=== PATIENT | male | born 1935 | race Caucasian/White ===

== ENCOUNTER 2016-05-07 10:57 | Day surgery (SDC) | payer MEDICARE ==
[2016-05-07] VITALS (7 sets, daily range): BP systolic 135–195; BP diastolic 57–70; PULSE 51–57; RESP 11–16; O2SAT 93–97
[~2016-05-07] VITALS: Ht 165.1 cm; Wt 99.4 kg
[~2016-05-07 10:57] MED LIST: ASCO-294 PO; ASPI-973 PO; CALC625T83 PO; CeFAZolin 2 Gm/50 mL D5W IV Premix IV ONE; FUR20 PO; IBUP200C11 PO; KEN1C EXT; LOSA25TA21 PO; MELA1TAB11 PO; METO50TA3 PO; MULT-1018 PO; NIAC500T21 PO; OMEG-38 PO; SIMV40TA5 PO; VITA400C19 PO; ZYL100 PO
[2016-05-07] MEDS ORDERED: Ondansetron 2 mg/mL 2 mL Inj ONE (10:58)
[2016-05-07] MEDS ORDERED: fentaNYL-PF 50 mCg/mL 2 mL Inj ONE (10:58)
[2016-05-07] MEDS ORDERED: EPHEDrine/NS 5 mg/mL 5 mL Syringe ONE (10:58)
[2016-05-07] MEDS ORDERED: Propofol 10,000 mCg/mL 20 mL Inj ONE (10:58)
[2016-05-07] MEDS ORDERED: CeFAZolin 2 Gm/50 mL D5W Duplex Bag IV ONE (11:15)
[2016-05-07] MEDS: Lactated Ringer's 1,000 ML IV SCH ×2 (11:47→12:51)
[2016-05-07] MEDS ORDERED: Lactated Ringer's 500 ML IV PRN (12:49)
[2016-05-07] MEDS ORDERED: Lactated Ringer's 1,000 ML IV SCH (12:49)
--- NOTE | 2016-05-07 12:49 | PCM.HPANE ---
Patient Data Surgeon Admitting Provider: Attending Provider:Dalton Bone MD Primary Care Physician:Juan J Weems MD Other Provider:Dorothy [place] Anesthesia Reason for Visit Left Knee Degenerative Medial Meniscus Tear Ht/WT & BMI Height (Feet): 5 Height (Inches): 5 Weight (Kilograms): 100.61 Body Mass Index 36.00 Allergies Coded Allergies: No Known Allergies (Verified Allergy, Unknown, 10/10/15) Past Anesthesia History Anesthesia History: Positive for:: Abnormal Airway (pt states difficult to intubate), Denies:: Anesthesia Reactions, Difficult Intubation, Fam Anesthesia Reaction , Fam Malignant Hypertherm, Malignant Hyperthermia Diabetes History Hx Diabetes?: No 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) Medications Blood Thinner: Aspirin Hypertension Medication: Yes Home Meds Incl Beta Cristobal: Yes Reported Medications Vitamin E (Dl,Tocopheryl Acet) (Vitamin E)400 Unit [id number] Unit PO DAILY 05/01/16 Ascorbate Calcium (Vitamin C)500 Mg Kxwyff496 Mg PO BID 05/01/16 Triamcinolone Acet (Triamcinolone Acetonide Cream)1 Applic/0.25 Gm Cr1 Applic EXT BID #60 GM Ref 0 05/01/16 Simvastatin 40 Mg Bdorco14 Mg PO HS 30 Days Ref 0 05/01/16 Niacinamide (Niacin)500 Mg Fnxlpw113 Mg PO DAILY 05/01/16 Metoprolol Tartrate 50 Mg Wbghzi84 Mg PO BID 30 Days Ref 0 05/01/16 Melatonin/Pyridoxine (Melatonin 3 mg Tablet)1 Each Tablet1 Each PO HS PRN For Insomnia 05/01/16 Losartan Potassium 25 Mg Bcigxh00 Mg PO DAILY 05/01/16 Furosemide 20 Mg Tab20 Mg PO DAILY 30 Days Ref 0 05/01/16 [place]-3/Dha/Epa/Fish Oil (Fish Oil 1,000 mg Softgel)1 Each Capsule1 Each PO DAILY 05/01/16 Calcium Polycarbophil (Fiber-Caps)625 Mg Kspkir802 Mg PO PRN For Constipation 05/01/16 Multivitamin (Multi Vitamin Daily)1 Each Tablet1 Each PO DAILY 30 Days Ref 0 05/01/16 Aspirin 81 Mg Tiixvm99 Mg PO DAILY Ref 0 05/01/16 Allopurinol 100 Mg Gjnqte440 Mg PO DAILY Ref 0 05/01/16 Ibuprofen (Advil)200 Mg Keneevo379 Mg PO Q6H PRN For Pain 05/01/16 Discontinued Reported Medications Losartan Potassium 25 Mg Nwrwne94 Mg PO 05/15/15 Vitamin E Mixed (Vitamin E)400 Unit Jolfabv495 Unit PO BID 30 Days 12/18/14 Ascorbate Calcium (Vitamin C)500 Mg Hnmcwl423 Mg PO BID 12/18/14 Triamcinolone Acet (Triamcinolone Acetonide Cream)1 Applic/0.25 Gm Cr1 Applic EXT BID #60 GM Ref 0 12/18/14 Niacin 500 Mg Voeewv476 Mg PO DAILY 30 Days 12/18/14 Melatonin 3 Mg Tablet3 Mg PO HS PRN Insomnia 12/18/14 Multivits-Min/FA/Lycopene/Lut (Centrum Silver Tablet)1 Each Tablet1 Each PO DAILY 12/18/14 Aspirin 81 Mg Anybzl63 Mg PO HS Ref 0 12/18/14 [place]-3 Fatty Acids (Fish Oil Concentrate)1,000 Mg Capsule1,000 Mg PO DAILY 12/18/14 Furosemide 20 Mg Tab20 Mg PO DAILY 30 Days Ref 0 02/22/14 Simvastatin 40 Mg Iifeoo27 Mg PO HS 30 Days Ref 0 02/22/14 Metoprolol Tartrate 50 Mg Erxkmb54 Mg PO BID 30 Days Ref 0 02/22/14 Allopurinol 100 Mg Ckhown743 Mg PO DAILY 30 Days Ref 0 02/22/14 Discontinued Scripts oxyCODONE-Acetaminophen 5-325 mg 1 Each Tablet1-3 Tab PO Q4H PRN For Pain #30 TABLET Prov:Michelet Cabrera MD 10/10/15 History HEENT History: Positive for:: Abnormal Airway (pt states difficult to intubate ) Cataracts (permanent cataract left eye, no surgery) Denies:: Difficult Intubation Dysphagia Glaucoma Hearing Problem Sinus Problem TMJ Hx of Heart Problems?: Yes Cardiovascular History: Positive for:: Cardiac Surgery (1994 Cabgx4 ) Hypertension Denies:: AICD Atrial Fibrillation Chest Pain Heart Murmur Irregular Heartbeat Pacemaker Peripheral Vascular Rheumatic Fever Valvular Heart Disease (echo 2015- ef 70-75%) Hx of Respiratory Problem?: No Respiratory History: Denies:: Asthma COPD Cough Hemoptysis Oxygen Administration Pneumonia Tuberculosis Use of C-PAP Machine (sleep study negative, no CPAP recommended) Use of Inhalers / NEBS Hx Neurologic Problems?: No Neurological History: Denies:: CVA Dementia Multiple Sclerosis Parkinson's Disease Seizures TIA Hx of GI Problems?: No Gastrointestinal History: Denies:: Cirrhosis Diverticulitis Gastroesphageal Reflux Gastrointestinal Bleeding Heartburn Hepatitis Hiatal Hernia Liver Disease Rectal Bleeding Hx of Problems?: No Genitourinary History: Denies:: Kidney Stones Urinary Tract Infection Male Hx: Denies:: Prostate Problems Scrotal Mass Testicular Surgery Skin History: Denies:: History Skin Disorders? Pressure Ulcers Hx Musculoskeletal Problems?: Yes Musculoskeletal History: Positive for:: Back Injury (hx of lami 25 years ago) Musculoskeletal Trauma (left knee current admission problem) Osteoarthritis Denies:: Joint Replacement Myasthenia Gravis Hx of Psycho/Social Problems?: No Psycho Social History: Denies:: Anxiety Hx Depression Hx Surgeries?: Yes (4 vessel CABG, lami) Hx Any Other Health Problems?: Yes Other History: Positive for:: Hospitalization Denies:: Cancer Thyroid Disease History Blood Transfusions: Positive for:: Accept Blood Products? Denies:: Blood Transfuse Reaction Blood Transfusions Hx Diabetes: No Hx Alcohol Use: NoHx Substance Use: No Smoking Status: Former Smoker Have You Smoked inLast 12 mo: No Stop/Bang P-Blood Pressure: treated: Yes B- Body Mass Index > 35 kg/m2: Yes A- Age over 50: Yes N- Neck Large Circumference: No G- Gender Male: Yes Risk Assessment Category Category 1A: Patient has history of documented sleep apnea, and HAS NOT received any narcotic, sedative or anesthesia administration during this stay. Category 1B: Patient has history of documented sleep apnea, and HAS received any narcotic , sedative or anesthesia administration during this stay Category 2: Patient has SUSPECTED Obstructive Sleep Apnea, and HAS received any narcotic , sedative or anesthesia administration during this stay. Category 3: Patient has SUSPECTED Obstructive Sleep Apnea and HAS NOT received narcotic, sedative or anesthesia administration during this stay. Category 4: Outpatient in Procedural Areas with known sleep apnea or who screen positive for High Risk via the STOP/BANG questionnaire. Exam Exam General Appearance: Alert, Oriented X3, Cooperative, No Acute Distress HEENT/AIRWAY: MP 3, Neck Movement (limited), Mouth Opening (smallish) Lungs: Clear to Auscultation Heart: Exam Unremarkable Plan Impression Patient chart reviewed, patient interviewed and anesthestic plan with risks, benefits, and alternatives discussed, and informed consent obtained. ASA Physical Status: ASA3 Severe Disease (CAD) Anesthetic Plan: GA Bene/Risks/Altern/Consents: Yes HP Complete Prior to Induction: Yes Tono Paredes MD May 06, 2016 15:39
[2016-05-07] MEDS ORDERED: Dexamethasone 4 mg/mL Inj IVPUSH PRN (12:50)
[2016-05-07] MEDS ORDERED: Ondansetron 2 mg/mL 2 mL Inj IVPUSH PRN (12:50)
[2016-05-07] MEDS ORDERED: EPHEDrine Sulfate 50 mg/mL Inj IVPUSH PRN (12:50)
[2016-05-07] MEDS ORDERED: Phenylephrine 10,000 mCg/mL Inj IVPUSH PRN (12:50)
[2016-05-07] MEDS ORDERED: HYDROmorphone 1 mg/mL Inj IVPUSH PRN (12:50)
[2016-05-07] MEDS ORDERED: MetoCLOpramide 5 mg/mL 2 mL Inj IVPUSH PRN (12:50)
[2016-05-07] MEDS ORDERED: fentaNYL-PF 50 mCg/mL 2 mL Inj IVPUSH PRN (12:50)
[2016-05-07] MEDS ORDERED: Lidocaine 2%-Epi 1:100,000 20 mL Inj INFILTRATE ONE (12:51)
[2016-05-07] MEDS ORDERED: MethylprednisoLONE Depot 40 mg/mL Inj ARTICULAR ONE (12:51)
--- NOTE | 2016-05-07 13:53 | PCM.ANEP1 ---
Post Anesthesia Phase 1 PACU Phase 1 Assessment Vital Signs Vital Signs Date Time Temp Pulse Resp B/P Pulse Ox O2 Delivery O2 Flow Rate FiO2 05/07/16 11:39 36.2 57 16 195/57 97 Room Air Anesthetic Administered: GA Level of Alertness: Sleepy, easy to arouse ANDERSEN's with Equal Strength: Yes Pain: No Nausea or Vomiting: No Oxygen Delivery: Room Air Lungs: Clear to Auscultation Dermatome Level: Full Sensation Tono Paredes MD May 07, 2016 13:53
[2016-05-07] MEDS ORDERED: HYDROcodone-APAP 5-325 mg Tablet PO PRN (14:00)
--- NOTE | 2016-05-07 14:00 | PCM.ORTHOB ---
Immediate Operative Note Date of Service: May 07, 2016 Pre Operative Diagnosis Left knee degenerative medial meniscal tear Post Operative Diagnosis Same Procedure Left knee arthroscopic partial medial meniscectomy and chondroplasty Surgeon Surgeon: Dalton Bone MD Assistants: None Findings Left knee medial compartment complex degenerative tear medial meniscus extending from the body through the posterior horn. 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 Diffuse grade 2-3 chondromalacia affecting the tibial articular surface. Anterior cruciate ligament appeared intact and was stable to probing. Lateral compartment was better preserved with intact lateral meniscus. Diffuse grade 2 chondromalacia on both sides of the joint affecting the weightbearing surface lateral femoral condyle and tibial articular surface. The medial and lateral gutters were free of loose bodies. Diffuse grade 1-2 chondromalacia affecting the majority of the undersurface of the patella. Grafts, Implants: None Complications There were no periprocedural complications identified. Condition Stable Anesthetic Administered: GA Drains: None Catheters: None Output, Estimated Blood Loss: 1 Blood Admin during surgery: No Surgical Cast or Splint: None Additional Information Tourniquet time 18 minutes Surgical Specimen Removed: No Surgical Specimen sent to Path: No Post Operative Plan Patient will be discharged from daycare surgery when protocol is met. Patient may weight-bear as tolerated beginning postop day #1 and should resume the operative knee exercises as soon as possible. The patient will be seen for routine wound check on her after postop day #5. Skin sutures can be removed on or after postoperative day #12. The patient should be able to resume light activities of daily living by that point. Dalton Bone MD May 07, 2016 14:00
--- NOTE | 2016-05-07 14:07 | PCM.ORTHOP ---
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 Onset of symptoms were not associated with trauma or change in activity. Patient reports sharp and catching medial left knee pain with turning , twisting and squatting activities. Preoperative exam of the patient's left knee reveals tenderness along the medial joint line and a positive Cindy sign. Preoperative MRI of the patient's left knee confirms degenerative changes primarily in the medial compartment and a degenerative tear of the medial meniscus. The patient's left knee symptoms have not responded to activity modification, and appropriate attempt at knee rehabilitation and exercise and the use of anti-inflammatory agents. The patient presents for a temporizing left knee arthroscopic partial medial meniscectomy. Findings Left knee medial compartment complex degenerative tear medial meniscus extending from the body through the posterior horn. 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 Diffuse grade 2-3 chondromalacia affecting the tibial articular surface. Anterior cruciate ligament appeared intact and was stable to probing. Lateral compartment was better preserved with intact lateral meniscus. Diffuse grade 2 chondromalacia on both sides of the joint affecting the weightbearing surface lateral femoral condyle and tibial articular surface. The medial and lateral gutters were free of loose bodies. Diffuse grade 1-2 chondromalacia affecting the majority of the undersurface of the patella. Details of Procedure The patient was brought to the OR and given a general anesthetic. He is placed in supine position and a tourniquet placed high about the left thigh. Left lower extremity was prepped and draped in usual sterile fashion and tourniquet was inflated to 275 mmHg. We placed 2 infrapatellar arthroscopic portals, one medial and one lateral for the scope and instruments. We instilled lactated Ringer's with epinephrine and went directly to the medial compartment. We confirmed the presence of a large complex degenerative tear of the medial meniscus extending from the body and posterior horn. There are also grade 3-4 chondromalacia changes primarily affecting the weightbearing surfaces of the medial femoral condyle, but there were advanced changes in the tibial articular surfaces well. We used a combination of arthroscopic basket biting forceps and arthroscopic shaver to debride the meniscal tear back to a stable base. We used the arthroscopic shaver to debride the more loose cartilaginous fragments on the medial femoral condyle and tibial articular surface. Once we had performed a partial meniscectomy and chondroplasty, we explored the rest of the knee. We found the anterior cruciate ligament to be intact and stable to probing. The lateral compartment was better preserved with intact lateral meniscus and milder degenerative changes on both sides of the joint. We reviewed the gutters and found no loose bodies medial or lateral. The patellofemoral compartment was reviewed and found to have early degenerative changes with grade 1-2 chondromalacia primarily affecting the patellar undersurface. We thoroughly irrigated the knee and removed the scope and instruments. 30 mL of 2% lidocaine with epinephrine and 40 mg of Depo-Medrol was instilled into the knee. The instruments and arthroscope were removed and the arthroscopic portals were closed with interrupted 4-0 nylon sutures. Wounds dressed with Xeroform dry gauze dressings. Tourniquet was deflated and the patient was taken back to PACU in stable and satisfactory condition. There were no complications. Patient tolerated the procedure well. Grafts, Implants: None Complications There were no periprocedural complications identified. Condition Stable Anesthetic Administered: GA Drains: None Catheters: None Output, Estimated Blood Loss: 1 Blood Admin during surgery: No Surgical Cast or Splint: None Addtional Information Tourniquet time 18 minutes Surgical Specimen Removed: No Specimen sent to Pathology: No Post Operative Plan Patient will be discharged from daycare surgery when protocol is met. Patient may weight-bear as tolerated beginning postop day #1 and should resume the operative knee exercises as soon as possible. The patient will be seen for routine wound check on her after postop day #5. Skin sutures can be removed on or after postoperative day #12. The patient should be able to resume light activities of daily living by that point. copies to: Juan J Weems MD; Dalton Bone MD, Michael G.E MD May 07, 2016 14:07
--- NOTE | 2016-05-07 14:35 | PCM.ANEP2 ---
Post Anesthesia Evaluation ASA/CMS Post Anesthesia VS in Patient's Normal Range?: Yes Resp Stable; Airway Patent?: Yes CV Function & Hydration Stable: Yes Mental Status Recovered?: Yes Pain control Satisfactory?: Yes N/V Control Satisfactory?: Yes Tono Paredes MD May 07, 2016 14:35
== END 2016-05-07 23:59 | disposition home or self-care (01) ==
LOC: SAS 10:57
PROVIDERS: ATTEND Orthopaedic Surgery
DX: M23.204 Derangement of unspecified medial meniscus due to old tear or injury, left knee (principal); M22.42 Chondromalacia patellae, left knee; I25.10 Atherosclerotic heart disease of native coronary artery without angina pectoris; G47.33 Obstructive sleep apnea (adult) (pediatric); I10 Essential (primary) hypertension; E78.5 Hyperlipidemia, unspecified; Z95.1 Presence of aortocoronary bypass graft; Z87.891 Personal history of nicotine dependence; Z79.82 Long term (current) use of aspirin
CPT/HCPCS: 29881; J0690; J1030; J2405; J7120